=== PATIENT | male | born 1960 | race Caucasian/White ===

== ENCOUNTER 2022-12-05 20:39 | Emergency (ER) | payer OTHER, SELFPAY ==
--- NOTE | ~2022-12-05 | XR_ITS ---
EXAMINATION: XR chest 1V portable Exam Date/Time: 12/05/2022 21:28 CDT HISTORY: Lightheadedness Comparison: 07/15/2014. RESULT: Lines, tubes, and devices: None. Lungs and pleura: Clear. Cardiomediastinal silhouette: Stable. Other: No acute osseous or upper abdominal finding. IMPRESSION: No acute cardiopulmonary process. Reviewed, dictated and finalized at location K.
[2022-12-05 20:40] VITALS: BP 102/57; PULSE 72; RESP 23; TEMP 36.6; O2SAT 100
[2022-12-05 20:54] VITALS: RESP 22
--- NOTE | 2022-12-05 21:17 | ECG_ITS ---
Measurements Intervals [place] Rate: 66 P: 67 AK: 182 QRS: -24 QRSD: 109 T: 32 QT: 424 QTc: 446 Interpretive Statements SINUS RHYTHM BORDERLINE R WAVE PROGRESSION, ANTERIOR LEADS MINIMAL Q WAVES- HIGH LATERAL LEADS BORDERLINE ECG NO PREVIOUS ECG AVAILABLE FOR COMPARISON Electronically Signed On 12-06-2022 8:10:19 CDT by Logan Barrera D.O.
[2022-12-05] MEDS: SODIUM CHLORIDE 0.9% IV 500 ML 999 ML IV CONT (21:31)
[2022-12-05 21:36] LABS: Basophils Absolute Auto 0.1 K/mm3 (0.0-0.1); Basophils Percent Auto 0.9 % (0.2-1.2); Eosinophils Absolute Auto 0.2 K/mm3 (0-0.3); Eosinophils Percent Auto 2.6 % (0-4.4); Hematocrit 40.8 % (42.0-52.0); Hemoglobin 14.1 g/dL (14.0-18.0); Immature Granulocyte Absolute 0.04 K/mm3 (0.00-0.031); Immature Granulocyte Percent A 0.5 % (0-0.5); Lymphocytes Absolute Auto 2.26 K/mm3 (0.9-3.2); Lymphocytes Percent Auto 29.2 % (18.3-44.2); Mean Corpuscular HGB Conc 34.6 g/dl (32-36); Mean Corpuscular Hemoglobin 31.7 pg (26-34); Mean Corpuscular Volume 91.7 fl (80-100); Mean Platelet Volume 9.4 fl (7.4-10.4); Monocytes Absolute Auto 0.6 K/mm3 (0.1-0.6); Monocytes Percent Auto 7.9 % (2.6-8.5); Neutrophils Absolute Auto 4.6 K/mm3 (1.3-6.7); Neutrophils Percent Auto 58.9 % (45.5-73.1); Platelet Count Result 246 k/mm3 (150-375); Red Blood Count 4.45 M/mm3 (4.6-6.20); Red Cell Distribution Width 12.7 % (11.5-14.5); White Blood Count 7.8 K/mm3 (4.5-10.0)
[2022-12-05 21:46] LABS: INR 1.7; Prothrombin Time 21.1 Seconds (11.1-14.7)
[2022-12-05 21:49] LABS: Alanine Aminotransferase 47 U/L (6-50); Albumin Level 4.7 g/dL (3.5-5.1); Alkaline Phosphatase 79 U/L (38-126); Anion Gap 16 mmol/L (8-16); Aspartate Amino Transferase 45 U/L (17-59); Bilirubin,Total 0.5 mg/dL (0.2-1.3); Blood Urea Nitrogen 31 mg/dL (9-20); Calcium 9.4 mg/dL (8.4-10.2); Carbon Dioxide 19 mmol/L (22-30); Chloride 102 mmol/L (98-107); Estimated CRCL calculation 31 ml/min; Estimated Glomerular Filt Rate 25; Glucose 162 mg/dL (65-110); Potassium 4.1 mmol/L (3.4-5.0); Sodium 137 mmol/L (137-145)
--- NOTE | 2022-12-05 21:54 | ED.RECABL ---
HPI - Recheck/Abnormal Lab/Rx General Chief Complaint: Recheck/Abnormal Lab/Rx Stated Complaint: weakness Time Seen by Provider: 12/05/22 20:56 History of Present Illness HPI narrative: This is a 62-year-old male with past history of CKD, coronary artery disease and A-fib, who presents emergency department complaining of lightheadedness. Patient states over the past several weeks, he has had progressive dyspnea on exertion. He was recently started on lisinopril. Today his symptoms seem worse than usual and the blood pressure at home was approximately 80/60. He denies other chest pain, recent injury, known sick contacts or travel. Related Data Allergies Allergy/AdvReac Type Severity Reaction Status Date / Time No Known Drug Allergies Allergy Unknown Other Verified 12/05/22 20:57 Shrimp Allergy Mild Swelling Uncoded 12/05/22 20:57 Review of Systems Review of Systems: CONSTITUTIONAL: Denies fever, chills, or sweats. CARDIOVASCULAR: Denies chest pain, palpitations, or edema. RESPIRATORY: Chronic dyspnea on exertion denies cough GASTROINTESTINAL: Denies abdominal pain, nausea, vomiting, or diarrhea. GENITOURINARY: Denies dysuria or hematuria. SKIN: Denies rash or itching. MUSCULOSKELETAL: Denies back pain, joint pain, or myalgia. NEUROLOGIC: Denies headache, numbness, dizziness, or weakness. PSYCHIATRIC: Denies anxiety or depression. [facility] Past Medical History Medical History (Updated 12/06/22 @ 00:16 by Az Kruger MD) A-fib CKD (chronic kidney disease) Coronary artery disease Surgical History Surgical History (Updated 12/05/22 @ 21:56 by Az Kruger MD) Status post coronary artery stent placement Social History Social History (Updated 12/05/22 @ 21:57 by Az Kruger MD) Smoking status: Former smoker Alcohol intake: current Drinks per week: 1 Substance use: never Exam Narrative: GENERAL: Well-developed, well-nourished, and in no acute distress. HEAD: Normocephalic, atraumatic. EYES: PERRLA and EOMI. ENT: Nares clear, no rhinorrhea or epistaxis. Mucous membranes moist. Oropharynx without tonsillar hypertrophy exudate or other lesions. NECK: Supple. No adenopathy or masses. No carotid bruits or JVD CHEST: Clear to auscultation. No respiratory distress. No wheezes rales or rhonchi HEART: Regular rate and rhythm. No murmur heard. Normal peripheral pulses. ABDOMEN: Soft, nontender, nondistended, normal active bowel sounds. EXTREMITIES: Normal range of motion. No edema. SKIN: Warm, dry, no rash. NEURO: No focal deficits. Alert and oriented x3. PSYCH: Normal mood and affect. Course Course Emergency Course: 00:12 - EKG not concerning for ischemia or arrhythmia. CBC unremarkable with hemoglobin of 14.1. Chemistries demonstrate decreased bicarb of 19 with creatinine of 2.6. The patient is not sure of his baseline creatinine but believes it to be in the mid twos. Troponin negative. BNP 205. UA demonstrates ketones with glucose but is not can concerning for UTI. Chest x-ray unremarkable. Anion gap of 16 is not concerning for DKA. After hydration with 2 L of fluid, the patient states he feels improved. Orthostatic vital signs inconclusive. I suspect the patient's lightheadedness is related to recently starting lisinopril with hypotension. I advised the patient to hydrate regularly, hold lisinopril and follow-up with his primary care doctor. Discussed return and emergent precautions including signs/symptoms of ACS and respiratory distress. The patient voiced understanding and is comfortable with the plan. All questions answered to his satisfaction. Vital Signs Vital signs: Vital Signs Temperature 98 F 12/05/22 20:40 Pulse Rate 72 12/05/22 20:40 Respiratory Rate 23 H 12/05/22 20:40 Blood Pressure 102/57 L 12/05/22 20:40 Pulse Oximetry 100 12/05/22 20:40 Oxygen Delivery Room Air 12/05/22 20:40 Temperature 98 F 12/05/22 20:40 Pulse Rate
[2022-12-05 22:01] LABS: NT Pro B Type Natriuretic Pept 205 pg/mL (19.9-100); Troponin I < 0.012 ng/mL (0.000-0.034)
[2022-12-05 22:16] LABS: Appearance Urine Clear (Clear); Bacteria Urine None Seen /hpf; Bilirubin Urine Negative (Negative); Blood Urine Negative (Negative); Color Urine Yellow (Yellow); Glucose Urine UA 3+ mg/dL (Negative); Ketones Urine Trace mg/dL (Negative); Leukocyte Esterase Ur 1+ LEU/UL (Negative); Nitrate Urine Negative (Negative); Non Pathogenic Casts 0-2; Protein Urine Negative (Negative); RBC Urine 0-2 /hpf (0-2); Specific Grav Ur 1.029 (1.001-1.035); Squamous Epithelial Cell Urine None seen /hpf (Few); Urobilinogen Urine 0.2 mg/dL (<2.0)
[2022-12-05 22:21] LABS: Add Urine Microscopic? YES
[2022-12-05] MEDS: SODIUM CHLORIDE 0.9% IV 1,000 ML 999 ML IV CONT (22:42)
[2022-12-05] MEDS: ONDANSETRON HCL ODT 4 MG TABLET PO (23:08)
[2022-12-05 23:43] VITALS: BP 91/65; PULSE 65; RESP 15; O2SAT 100
[2022-12-06 00:07] VITALS: BP 99/63; PULSE 69
[2022-12-06 00:08] VITALS: BP 102/66; PULSE 64
[2022-12-06 00:09] VITALS: BP 93/65; PULSE 64
== END 2022-12-06 00:44 | disposition home or self-care (01) ==
PROVIDERS: Emergency Provider Preventive Medicine Aerospace Medicine
DX: R42 Dizziness and giddiness (principal); E86.0 Dehydration; I95.2 Hypotension due to drugs; T46.4X5A Adverse effect of angiotensin-converting-enzyme inhibitors, initial encounter; I48.91 Unspecified atrial fibrillation; I25.10 Atherosclerotic heart disease of native coronary artery without angina pectoris; N18.9 Chronic kidney disease, unspecified; Z95.5 Presence of coronary angioplasty implant and graft; Z87.891 Personal history of nicotine dependence; R94.31 Abnormal electrocardiogram [ECG] [EKG]
CPT/HCPCS: 36415; 71045; 80053; 81001; 83880; 84484; 85025; 85610; 87086; 87088; 93005; 96360; 96361; 99284; A9270; J7030; J7040

== ENCOUNTER 2023-10-10 13:58 | Emergency (ER) | payer MEDICARE, OTHER, SELFPAY ==
[2023-10-10] VITALS (14 sets, daily range): BP systolic 121–141; BP diastolic 65–97; PULSE 60–66; RESP 12–20; TEMP 36.4; O2SAT 93–100
--- NOTE | ~2023-10-10 | XR_ITS ---
EXAMINATION: XR chest 2V DATE: 10/10/2023 15:54 INDICATION: Dyspnea. Cough. TECHNIQUE: Frontal and lateral views of the chest were obtained. COMPARISON: Chest single view 12/05/2022 FINDINGS: There is no pneumonia, pleural effusion, or pneumothorax. The heart size is normal. There i s mild chronic anterior wedging of T12 vertebral body. IMPRESSION: 1. No acute cardiopulmonary disease. Reviewed, dictated and finalized at location A.
--- NOTE | 2023-10-10 15:12 | ED.SOB ---
HPI - SOB/Dyspnea General Chief Complaint: Shortness of Breath/Dyspnea <Barbi Burrell PA-C - Last Filed: 10/10/23 15:27> Stated Complaint: sob, low bp <Barbi Burrell PA-C - Last Filed: 10/10/23 15:27> Time Seen by Provider: 10/10/23 16:44 <Barbi Burrell PA-C - Last Filed: 10/10/23 15:27> Focused HPI: 63-year-old male history of CAD, paroxysmal AFib, insulin-dependent diabetes, hyperlipidemia, hypertension reports for evaluation for dyspnea that occurred today. Patient states he was running errands this morning when her when he came home and sat in his recliner he became short of breath. Chills last night States he took his blood pressure at that time and it was 77/47, then checked it again and was 111/60. Denies chest pain but does report pain in his shoulders that was concurrent with his dyspnea. States he continued to take deep breaths and improved. Of note, patient underwent a cardiac ablation on 10/08/[address] Cervantes at the [facility]. Patient denies known complications. States he spent the night at the [facility] and was discharged home yesterday States he attempted to contact the [facility] nurses Today without success and came to the ER to get evaluated. States last night he had multiple episodes of chills, however denies known fever. Reports an intermittent productive cough, prior cardiac stenting and FMHx of heart disease. He is anticoagulated with xeralto. Pt reports a hx of hypotension in the past where he was d/c off of metoprolol and lisinopril. Pt has been on metoprolol 50mg for the past 3 months for a fib. Denies lower extremity edema, hemoptysis. GENERAL: Well-appearing, well-nourished, and in no acute distress. HEAD: Normocephalic, atraumatic. CHEST: Clear to auscultation. ?No respiratory distress. HEART: Regular rate and rhythm.? NEURO: ?Alert and oriented x3. Patient screened in triage and initial orders placed.? ?Additional care and disposition to be based upon?diagnostic testing and treatment. <Barbi Burrell PA-C - Last Filed: 10/10/23 15:27> Source: patient <Gilda Camacho MD - Last Filed: 10/11/23 06:08> Mode of arrival: ambulatory <Gilda Camacho MD - Last Filed: 10/11/23 06:08> Limitations: no limitations <Gilda Camacho MD - Last Filed: 10/11/23 06:08> History of Present Illness HPI Narrative: Concur with above history as obtained by LENORE in triage. Patient has follow up appointment with supervisor coating 30d from procedure. Episode of shortness of breath lasted approximately 10-12 minutes while at rest and resolved without recurrence while in the ED. He notes a very occasional cough but describes it more as occasionally clearing his throat. Did not have / does not have chest pain. Endorses being achy/shivering the night he was discharged with some interrupted sleep but earlier today had been active, on a ladder, running errands, and seeing his girlfriend. SOB happened when he sat down and was resting. <Gilda Camacho MD - Last Filed: 10/11/23 06:08> Related Data Allergies/Adverse Reactions: Allergies Allergy/AdvReac Type Severity Reaction Status Date / Time No Known Drug Allergies Allergy Unknown Other Verified 12/05/22 20:57 Shrimp Allergy Mild Swelling Uncoded 10/10/23 14:08 <aBrbi Burrell PA-C - Last Filed: 10/10/23 15:27> [facility] Past Medical History Medical History: Medical History A-fib CKD (chronic kidney disease) Coronary artery disease <Barbi Burrell PA-C - Last Filed: 10/10/23 15:27> Surgical History Surgical History: Surgical History Status post ablation of atrial fibrillation [facility] 10/08/2023 Status post coronary artery stent placement <Barbi Burrell PA-C - Last Filed: 10/10/23 15:27> Social History Social History: Social History (Updated 10/11/23 @ 05:55 by Elizabeth
--- NOTE | 2023-10-10 15:20 | ECG_ITS ---
Measurements Intervals [place] Rate: 61 P: 77 [place]: 179 QRS: -13 QRSD: 118 T: 41 QT: 441 QTc: 447 Interpretive Statements SINUS RHYTHM INCOMPLETE RIGHT BUNDLE BRANCH BLOCK MINIMAL Q WAVES- LAT/HIGH LAT LEADS BASELINE ARTIFACT- V1-V5 BORDERLINE ECG COMPARED TO ECG 12/05/2022 21:43:29 NO SIGNIFICANT CHANGES Electronically Signed On 10-10-2023 16:32:12 CDT by Logan Barrera D.O.
[2023-10-10 16:11] LABS: Basophils Absolute Auto 0.1 K/mm3 (0.0-0.1); Basophils Percent Auto 0.6 % (0.2-1.2); Eosinophils Absolute Auto 0.2 K/mm3 (0-0.3); Eosinophils Percent Auto 2.6 % (0-4.4); Hematocrit 41.4 % (42.0-52.0); Immature Granulocyte Absolute 0.08 K/mm3 (0.00-0.031); Immature Granulocyte Percent A 0.9 % (0-0.5); Lymphocytes Absolute Auto 2.26 K/mm3 (0.9-3.2); Lymphocytes Percent Auto 26.6 % (18.3-44.2); Mean Corpuscular HGB Conc 33.8 g/dl (32-36); Mean Corpuscular Hemoglobin 30.9 pg (26-34); Mean Corpuscular Volume 91.4 fl (80-100); Mean Platelet Volume 10.1 fl (7.4-10.4); Monocytes Absolute Auto 0.7 K/mm3 (0.1-0.6); Monocytes Percent Auto 8.7 % (2.6-8.5); Neutrophils Absolute Auto 5.2 K/mm3 (1.3-6.7); Neutrophils Percent Auto 60.6 % (45.5-73.1); Platelet Count Result 190 k/mm3 (150-375); Red Blood Count 4.53 M/mm3 (4.6-6.20); Red Cell Distribution Width 12.7 % (11.5-14.5); White Blood Count 8.5 K/mm3 (4.5-10.0)
[2023-10-10 16:23] LABS: Alanine Aminotransferase 29 U/L (6-50); Albumin Level 4.3 g/dL (3.5-5.1); Alkaline Phosphatase 122 U/L (38-126); Anion Gap 7 mmol/L (4-12); Aspartate Amino Transferase 28 U/L (17-59); Bilirubin,Total 0.8 mg/dL (0.2-1.3); Blood Urea Nitrogen 21 mg/dL (9-20); Calcium 9.7 mg/dL (8.4-10.2); Carbon Dioxide 25 mmol/L (22-30); Chloride 99 mmol/L (98-107); Estimated CRCL calculation 61 ml/min; Estimated Glomerular Filt Rate 55; Glucose 401 mg/dL (65-110); Lipase 112 U/L (23-300); Potassium 4.2 mmol/L (3.4-5.0); Sodium 131 mmol/L (137-145)
[2023-10-10 16:47] LABS: NT Pro B Type Natriuretic Pept 1050 pg/mL (19.9-100); Troponin I 0.439 ng/mL (0.000-0.034)
[2023-10-10 16:50] LABS: Influenza A QL RT-PCR Negative (Negative); Influenza B QL RT-PCR Negative (Negative); RSV RNA, RT-PCR Negative (Negative); SARS-CoV-2 RNA PCR Negative (Negative)
[2023-10-10] MEDS: ASPIRIN 81 MG CHEWABLE TABLET 324 MG PO (17:07)
[2023-10-10 19:51] LABS: Troponin I 0.342 ng/mL (0.000-0.034)
== END 2023-10-10 21:16 | disposition home or self-care (01) ==
PROVIDERS: Physician Assistant; Emergency Provider Student in an Organized Health Care Education/Training Program
DX: R06.02 Shortness of breath (principal); R79.89 Other specified abnormal findings of blood chemistry; Z98.890 Other specified postprocedural states; Z20.822 Contact with and (suspected) exposure to COVID-19; I25.10 Atherosclerotic heart disease of native coronary artery without angina pectoris; I48.0 Paroxysmal atrial fibrillation; E78.5 Hyperlipidemia, unspecified; E11.22 Type 2 diabetes mellitus with diabetic chronic kidney disease; I12.9 Hypertensive chronic kidney disease with stage 1 through stage 4 chronic kidney disease, or unspecified chronic kidney disease; N18.9 Chronic kidney disease, unspecified; Z95.5 Presence of coronary angioplasty implant and graft; Z87.891 Personal history of nicotine dependence; I45.10 Unspecified right bundle-branch block
CPT/HCPCS: 36415; 71046; 80053; 83690; 83880; 84484; 85025; 87637; 93005; 99284; A9270